=== PATIENT | male | born 2000 | race Two or more races ===

== ENCOUNTER 2021-01-17 12:46 | Inpatient (IN) | payer OTHER ==
[~2021-01-17] VITALS: Ht 167.6 cm; Wt 65.8 kg
[2021-01-17] MEDS ORDERED: PRILOSEC OTC20 MG (13:14)
[2021-01-17] MEDS ORDERED: BENTYL10 MG/1 ML (13:14)
--- NOTE | 2021-01-17 13:16 | NUR ---
PACIENTE ALERTA Y ORIENTADO EN [place] ESFERAS. PACIENTE REFIERE DOLOR ABDOMINAL INTENSO DESDE HACE VARIOS STEWART. PACIENTE REFIERE MORAIMA PRESENTADO EPISODIOS DE DIARREAS Y NAUSEAS. PACIENTE SE ESTA TRATANDO CON PRILOSEC Y BENTYL, DALTON REFIERE QUE NO ALIVIAN EL DOLOR. SE DAVI S/V Y SE COLOCA A PACIENTE EN AREA DE OBSERVACION.
--- NOTE | 2021-01-17 13:55 | NUR ---
MR A LUCERO ORIENTA A PACIENTE SOBRE ORDENES MEDICAS, COLECTA MUESTRAS DE LABORATORIO Y ADMINISTRA TORADOL 30 MG IV. SE HACE ENTREGA DE GASTROVIEW CON INSTRUCCIONES DE TALHA INGERIRLO, PENDIENTE QUE PACIENTE TOME CONTRASTE.
--- NOTE | 2021-01-17 17:07 | NUR ---
PTE ALERTA Y ORIENTADO X 3 ESFERAS,SIN FAMILIAR,EN AILYN CON BARANDAS ELEVADAS.PENDIENTE A LECTURA DE CT.
== END 2021-01-24 22:32 | disposition home or self-care (01) | DRG 392 ==
LOC: ER 12:46 → MEDJ 20:48
PROVIDERS: ADMIT Internal Medicine; ATTEND Internal Medicine
PROC: 02HV33Z Insertion of Infusion Device into Superior Vena Cava, Percutaneous Approach (ICD-10-PCS; principal; 2021-01-17)
PROC: BW2110Z Computerized Tomography (CT Scan) of Abdomen and Pelvis using Low Osmolar Contrast, Unenhanced and Enhanced (ICD-10-PCS; 2021-01-17)
PROC: 3E04329 Introduction of Other Anti-infective into Central Vein, Percutaneous Approach (ICD-10-PCS; 2021-01-18)
DX: A09 Infectious gastroenteritis and colitis, unspecified (principal); E86.0 Dehydration; Z20.822 Contact with and (suspected) exposure to COVID-19